=== PATIENT | female | born 1950 | race Caucasian/White ===

== ENCOUNTER 2021-09-11 10:08 | Day surgery (SDC) | payer MEDICARE, BC ==
[~2021-09-11] VITALS: Ht 147.3 cm; Wt 86.8 kg
[~2021-09-11 10:08] MED LIST: BUSP5TAB20 PO; CHOL200059 PO; HYDR25TA PO; LEVO50TA11 PO; METF-1211 PO; NEBI5TAB2 PO; NIFE90TA63 PO; SIMV10TA97 PO; SODIUM CHLORIDE 0.9% 1,000 ML IV ONE; SODIUM CHLORIDE 0.9% 1,000 ML ONE; ZOLP10TA8 PO
[2021-09-11] MEDS ORDERED: DIAZEPAM 5 MG TABLET ONE (10:58)
[2021-09-11] MEDS ORDERED: ASPIRIN 81 MG CHEWABLE TABLET ONE (10:58)
[2021-09-11] MEDS ORDERED: DiphenhydrAMINE HCL 50 MG CAPSULE ONE (11:05)
[2021-09-11] MEDS ORDERED: FentaNYL CITRATE PF 100 MCG/2 ML VIAL ONE (11:21)
[2021-09-11] MEDS ORDERED: IOHEXOL 300 MG/ML 150 ML VIAL ONE (11:22)
[2021-09-11] MEDS ORDERED: HEPARIN SODIUM 1000 UNITS/NS 1,000 ML ONE (11:22)
[2021-09-11] MEDS ORDERED: IOHEXOL 300 MG/ML 100 ML VIAL ONE (11:22)
[2021-09-11] MEDS ORDERED: SODIUM BICARBONATE 50 MEQ/50 ML VIAL ONE (11:22)
[2021-09-11] MEDS ORDERED: MIDAZOLAM HCL 2 MG/2 ML VIAL ONE (11:22)
[2021-09-11] MEDS ORDERED: LIDOCAINE/PF 1% 30 ML VIAL ONE (11:22)
[2021-09-11] MEDS ORDERED: IOHEXOL 300 MG/ML 50 ML VIAL ONE (11:22)
[2021-09-11] MEDS ORDERED: HEPARIN SODIUM 1000 UNITS/NS 1,000 ML IARTER ONE (11:30)
[2021-09-11] MEDS ORDERED: IOHEXOL 300 MG/ML 150 ML VIAL ICOR ONE (11:30)
[2021-09-11] MEDS ORDERED: LIDOCAINE 1% 30 ML/SOD BICARB 8.4% 4 ML SQ ONE (11:30)
[2021-09-11] MEDS ORDERED: DiphenhydrAMINE HCL 50 MG CAPSULE PO ONE (12:00)
[2021-09-11] MEDS ORDERED: ASPIRIN 81 MG CHEWABLE TABLET PO ONE (12:00)
[2021-09-11] MEDS ORDERED: DIAZEPAM 5 MG TABLET PO ONE (12:00)
[2021-09-11] MEDS ORDERED: FentaNYL CITRATE PF 100 MCG/2 ML VIAL IVP ONE (12:15)
[2021-09-11] MEDS ORDERED: MIDAZOLAM HCL 2 MG/2 ML VIAL IVP ONE (12:15)
[2021-09-11 12:51] LABS: GLUCOMETER DEV NAME(LOC) SDS.; GLUCOSE,POINT OF CARE 150 MG/DL (70-110)
== END 2021-09-11 16:30 | disposition home or self-care (01) ==
LOC: CATHLAB 10:08
PROVIDERS: ATTEND Internal Medicine Interventional Cardiology
DX: R94.39 Abnormal result of other cardiovascular function study (principal); I25.10 Atherosclerotic heart disease of native coronary artery without angina pectoris; I10 Essential (primary) hypertension; G47.30 Sleep apnea, unspecified; E78.5 Hyperlipidemia, unspecified; E66.01 Morbid (severe) obesity due to excess calories; E03.9 Hypothyroidism, unspecified; E11.9 Type 2 diabetes mellitus without complications; Z68.39 Body mass index [BMI] 39.0-39.9, adult; Z79.899 Other long term (current) drug therapy; Z98.890 Other specified postprocedural states; Z88.2 Allergy status to sulfonamides
CPT/HCPCS: 82962; 93005; 93458; 99152; 99153; C1760; J1644; J2250; J3010; J3490 ×2; J7030; Q9967